=== PATIENT | female | born 1940 | race Caucasian/White ===

== ENCOUNTER 2018-05-21 23:02 | Emergency (ER) | payer OTHER, BC ==
[~2018-05-21] VITALS: Ht 170.2 cm; Wt 79.4 kg
[2018-05-22] VITALS (8 sets, daily range): BP systolic 96–137; BP diastolic 43–81
[2018-05-22 00:11] LABS: CHLORIDE 103 mEq/L (99-109); POTASSIUM 4.4 mEq/L (3.7-5.4); SODIUM 138 mEq/L (136-147)
[2018-05-22 00:13] LABS: GLUCOSE 103 mg/dL (70-99)
[2018-05-22 00:17] LABS: CREATININE 0.8 mg/dL (0.6-1.3); GFR ESTIMATE (CALCULATED) > 59 mL/min/; UREA NITROGEN (BUN) 18 mg/dL (9-23)
[2018-05-22 00:21] LABS: HEMATOCRIT 21.4 % (36.0-46.0); HEMOGLOBIN 7.1 G/DL (11.9-15.5); MCH 29.8 PG (29.0-34.0); MCHC 33.2 G/DL (30.0-36.0); MCV 89.9 FL (83-99); PLATELET COUNT 59 K/uL (156-360); RBC DIS.WIDTH-CV 16.7 % (11.8-14.6); RBC DIS.WIDTH-SD 52.6 % (39-53); RED BLOOD COUNT 2.38 M/uL (3.80-5.20); WHITE BLOOD COUNT 1.5 K/uL (4.1-10.2)
== END 2018-05-22 10:23 | disposition home or self-care (01) ==
LOC: EME 23:02
PROVIDERS: Emergency Medicine
PROC: 30233N1 Transfusion of Nonautologous Red Blood Cells into Peripheral Vein, Percutaneous Approach (ICD-10-PCS; principal; 2018-05-21)
DX: D61.818 Other pancytopenia (principal); D64.9 Anemia, unspecified; D46.9 Myelodysplastic syndrome, unspecified; I10 Essential (primary) hypertension; E78.5 Hyperlipidemia, unspecified; F41.9 Anxiety disorder, unspecified; Z85.118 Personal history of other malignant neoplasm of bronchus and lung
CPT/HCPCS: 71046; 80048; 85027; 86850; 86870; 86900; 86901; 86920; 99281; 99285; J2405; J2765; P9016; P9040